=== PATIENT | female | born 1980 | race Caucasian/White ===

== ENCOUNTER 2017-05-22 01:04 | Emergency (ER) | payer SELFPAY ==
[~2017-05-22] VITALS: Ht 170.2 cm; Wt 65.8 kg
[~2017-05-22 01:04] MED LIST: LORazepam Inj 2mg/ml 1ml ONE
[2017-05-22] MEDS ORDERED: LORazepam Inj 2mg/ml 1ml IV ONE (01:15)
[2017-05-22 01:39] LABS: MEAN CORPUSCULAR HEMOGLOBIN 33.9 PG (27.0-31.0); MEAN CORPUSCULAR HGB CONC 32.8 G/DL (32.0-36.0); MEAN CORPUSCULAR VOLUME 103 FL (80-99); MEAN PLATELET VOLUME 8.1 FL (6.5-10.1); PLATELET COUNT 317 K/UL (150-450); RED BLOOD COUNT 4.34 M/UL (4.20-5.40); RED CELL DISTRIBUTION WIDTH 12.1 % (11.6-14.8)
[2017-05-22 01:41] LABS: WHITE BLOOD COUNT 24.2 K/UL (4.8-10.8)
[2017-05-22 02:00] LABS: BAND NEUTROPHILS % (MANUAL) 1 % (0-8); BASOPHILS % (MANUAL) 0 % (0-2); EOSINOPHILS % (MANUAL) 1 % (0-3); LYMPHOCYTES % (MANUAL) 30 % (20-45); NEUTROPHILS % (MANUAL) 59 % (45-75); PLATELET ESTIMATE ADEQUATE; PLATELET MORPHOLOGY NORMAL; TOTAL CELLS COUNTED 100
[2017-05-22 02:11] LABS: ALANINE AMINOTRANSFERASE 13 U/L (3-33); ALCOHOL < 10 mg/dL; ANION GAP 40 (5-15); ASPARTATE AMINO TRANSFERASE 22 U/L (5-40); CALCIUM 9.7 mg/dL (8.6-10.2); CARBAMAZEPINE (TEGRETOL) < 2.0 ug/mL (4.0-12.0); CHLORIDE 94 mEQ/L (98-107); CREATININE 1.1 mg/dL (0.5-0.9); GLOMERULAR FILTRATION RATE > 60 mL/min (>60); HEMOLYSIS 17; POTASSIUM 4.3 mEQ/L (3.4-4.9); SODIUM 140 mEQ/L (135-145); TOTAL PROTEIN 8.1 g/dL (6.6-8.7)
[2017-05-22 02:13] LABS: CARBON DIOXIDE < 6 mEQ/L (20-30)
[2017-05-22] MEDS ORDERED: levETIRAcetam 1,000mg/NS100ml 100 ML IVPB ONE (02:15)
[2017-05-22 02:30] VITALS: BP 136/71
[2017-05-22 03:09] LABS: MEAN CORPUSCULAR HEMOGLOBIN 32.3 PG (27.0-31.0); MEAN CORPUSCULAR HGB CONC 33.6 G/DL (32.0-36.0); MEAN CORPUSCULAR VOLUME 96 FL (80-99); MEAN PLATELET VOLUME 8.1 FL (6.5-10.1); PLATELET COUNT 231 K/UL (150-450); RED BLOOD COUNT 3.96 M/UL (4.20-5.40); RED CELL DISTRIBUTION WIDTH 11.3 % (11.6-14.8)
[2017-05-22 03:26] LABS: ANION GAP 18 (5-15); CALCIUM 8.6 mg/dL (8.6-10.2); CARBON DIOXIDE 19 mEQ/L (20-30); CHLORIDE 104 mEQ/L (98-107); CREATININE 0.8 mg/dL (0.5-0.9); GLOMERULAR FILTRATION RATE > 60 mL/min (>60); HEMOLYSIS 11; POTASSIUM 3.7 mEQ/L (3.4-4.9); SODIUM 141 mEQ/L (135-145)
[2017-05-22 03:39] VITALS: BP 115/72
[2017-05-22] MEDS ORDERED: KEPPRA500 M4 ORAL (03:40)
--- NOTE | 2017-05-22 03:41 | Emergency Room Report ---
History of Present Illness General Chief Complaint: Seizure Source: Patient, EMS Present Illness HPI Is a 37-year-old female with history of seizure. Initially she came as a María Neal because of seizure. She had several seizure tonight. Friends called 911 because she had a tonic-clonic seizure activity. Per EMS he was postictal. She had another one on route. She was placed into her room, she had another one lasting for about 30 seconds. She was postictal is unable to give a history. After she became alert, she said that she has not been taking her Keppra. She was seen by a neurologist in [place] and was cleared to drive. She is currently driving. Allergies: Coded Allergies: UNABLE TO ASSESS (Unverified , 05/22/17) Patient History Past Medical History: see triage record, old chart reviewed Past Surgical History: none Pertinent Family History: none Social History: Denies: smoking Last Menstrual Period: n/a Now: No Immunizations: other Reviewed Nursing Documentation: PMH: Agreed, PSxH: Agreed Nursing Documentation-PMH Hx Seizures: Yes Review of Systems Eye: Denies: blurred vision, eye pain ENT: Denies: ear pain, nose congestion, throat swelling Respiratory: Denies: cough, shortness of breath Cardiovascular: Denies: chest pain, palpitations Gastrointestinal: Denies: abdominal pain, diarrhea, nausea, vomiting Musculoskeletal: Denies: back pain, joint pain Skin: Denies: rash Neurological: Denies: headache, numbness Endocrine: Denies: increased thirst, increased urine Hematologic/Lymphatic: Denies: easy bruising All Other Systems: negative except mentioned in HPI Physical Exam vitals unremarkable Sp02 EP Interpretation: reviewed, normal General Appearance: well appearing, no apparent distress, other - Actively seizing Head: normocephalic, atraumatic Eyes: bilateral eye EOMI, bilateral eye PERRL ENT: hearing grossly normal, normal pharynx Neck: full range of motion, supple, no meningismus Respiratory: chest non-tender, lungs clear, normal breath sounds Cardiovascular #1: regular rate, rhythm, no murmur Gastrointestinal: normal bowel sounds, non tender, no mass, no organomegaly, no bruit, non-distended Musculoskeletal: back normal, normal range of motion Neurologic: other - Postictal Skin: warm/dry Medical Decision Making Diagnostic Impression: Primary Impression: Seizure disorder ER Course Patient presents with seizure disorder. She is now back to baseline. I loaded her with Keppra. She did tell me she is taking Keppra after she became alert. Labs normalizing. White count elevated probably secondary to seizure activity and stress response. Because she is noncompliant and is still driving with seizure, will acuity in the report. Explained this to her. This is the federal law. Lab Results Impression labs leukocytosis Rhythm Strip Diag. Results Rhythm Strip Time: 03:39 EP Interpretation: yes Rate: 86 Rhythm: NSR Status: improved Disposition: HOME, SELF-CARE Condition: Stable Scripts Levetiracetam (KEPPRA) 500 Mg Tablet 500 MG ORAL EVERY 12 HOURS, #60 TAB 0 Refills Prov: CLAUDIO CHURCH M.D. 05/22/17 Referrals: NOT CHOSEN [facility]/,REFERRING (PCP) Patient Instructions: Seizure, Adult Additional Instructions: Taking your medication regularly. A DMV report was filed. You cannot drive because of the seizure activity. Followup with your Dr. within a week. You will need clearance by a neurologist to drive again. Return if symptom worsen. CLAUDIO CHURCH M.D. May 22, 2017 03:41
[2017-05-22 03:54] VITALS: BP 115/72
[2017-05-22 07:27] LABS: BAND NEUTROPHILS % (MANUAL) 1 % (0-8); BASOPHILS % (MANUAL) 0 % (0-2); EOSINOPHILS % (MANUAL) 0 % (0-3); LYMPHOCYTES % (MANUAL) 2 % (20-45); NEUTROPHILS % (MANUAL) 92 % (45-75); PLATELET ESTIMATE ADEQUATE; PLATELET MORPHOLOGY NORMAL; TOTAL CELLS COUNTED 100
== END 2017-05-22 03:54 | disposition home or self-care (01) ==
LOC: EDBD 01:04 → EMR 01:30 → EDBD 01:30 → EMR 03:54
DX: G40.409 Other generalized epilepsy and epileptic syndromes, not intractable, without status epilepticus (principal)
CPT/HCPCS: 36415; 80048; 80053; 80156; 80185; 80300; 81025; 85007; 85025; 96360; 96374; 96375; 99284; G0480; 80329